=== PATIENT | female | born 1995 | race Asian ===

== ENCOUNTER 2017-05-08 12:48 | Outpatient (CLI) | payer OTHER ==
[~2017-05-08] VITALS: Ht 160 cm; Wt 62.0 kg
[~2017-05-08 12:48] MED LIST: FER325 PO; PNV1TABL4 PO; PREN-46 PO
[2017-05-08 13:56] VITALS: Ht 160 cm; Wt 62.0 kg
[2017-05-08 13:58] VITALS: BP 119/64; PULSE 88; RESP 18
--- NOTE | 2017-05-08 15:00 | RADRPT ---
PROCEDURE: US cervix CLINICAL INDICATION: labor TECHNIQUE: Limited OB ultrasound was performed to evaluate the cervix COMPARISON: No prior studies are available for comparison. FINDINGS: There is a single live intrauterine . Normal cardiac activity is identified at a rat e of 138 beats per minute. The placenta is anterior and posterior grade 1. Cervix is closed and measures 4.4 cm in length. There is no funneling. IMPRESSION: Cervix is closed and measures 4.4 cm in length RPTAT: HH .Russ Bernard MD, Date Time Electronically viewed and signed by .Russ Bernard MD, on 05/08/2017 14:59 .W/
[2017-05-08 15:18] LABS: ADD UMIC YES; UR ASCORBIC ACID 20 mg/dL (NEGATIVE); UR BACTERIA FEW /HPF (NONE SEEN); UR BILIRUBIN (Dip) NEGATIVE (NEGATIVE); UR BLOOD (Dip) NEGATIVE (NEGATIVE); UR CLARITY SLIGHTLY CLOUDY (CLEAR); UR COLOR YELLOW (YELLOW); UR GLUCOSE (Dip) NEGATIVE (NEGATIVE); UR KETONES (Dip) NEGATIVE (NEGATIVE); UR LEUKOCYTE ESTERASE (Dip) 2+ Leu/ul (NEGATIVE); UR MUCUS FEW /HPF (NONE SEEN); UR NITRITE (Dip) NEGATIVE (NEGATIVE); UR RBC 0 /HPF (0-5); UR SPECIFIC GRAVITY (Dip) 1.019 (1.003-1.030); UR SQUAMOUS EPITHELIAL CELL FEW /HPF (FEW); UR TOTAL PROTEIN (Dip) NEGATIVE (NEGATIVE); UR UROBILINOGEN (Dip) NEGATIVE (NEGATIVE)
--- NOTE | 2017-05-08 18:10 | PN ---
Triage Information Date/Time May 08, 2017 Reason for visit: Lower abdominal pain in standing and walk with walking Weeks of Gestation 23 weeks /Para 2 para 1 Diabetes: none Hypertention: none Additional information 21-year-old with IUP at 23 weeks she was sent from her OB clinic today due to feeling lower abdominal pain. Patient reports that her lower abdominal pain is only when she stands and walks and resolves when she is in sitting and lying down position. She denies any leaking of fluid, vaginal bleeding or uterine contractions. She reports that she was seen in the clinic today. Reports had a history of UTI that completed the antibiotics a month ago. Denies any urinary symptoms currently. Objective Vital Signs Date Time Temp Pulse Resp B/P Pulse Ox O2 Delivery O2 Flow Rate FiO2 05/08/17 13:58 98.0 88 18 119/64 Room Air Heart Rate: 130's Contractions: None Exam General appearance: Alert and oriented 4. Patient does not appear to be in any acute distress. Abdomen: Soft, gravid, fundal height consistent with gestational age. No contraction and NST noted There is no suprapubic tenderness, no CVA tenderness, no abdominal tenderness, no guarding, no rigidity no evidence of acute abdomen. Patient appears to be completely comfortable at the time of exam. Transvaginal cervical length: 4.4 cm Results/Medications Results 24 hrs Laboratory Tests Test 05/08/17 13:00 Urine Color YELLOW Urine Clarity SLIGHTLY CLOUDY A Urine pH 7.0 Urine Specific [place] 1.019 Urine Ketones NEGATIVE Urine Nitrite NEGATIVE Urine Bilirubin NEGATIVE Urine Urobilinogen NEGATIVE Urine Leukocyte Esterase 2+ H Urine Microscopic RBC 0 Urine Microscopic WBC 1 Urine Squamous Epithelial Cells FEW Urine Bacteria FEW A Urine Mucus FEW A Urine Hemoglobin NEGATIVE Urine Glucose NEGATIVE Urine Total Protein NEGATIVE Disposition: Discharge Assessment/Plan IUP at 23 weeks lower abdominal pain in both sides Exam consistent with round ligamant pain and musculoskeletal. No evidence of labor Patient was advised to use abdominal binder. labor precaution and kick counts and follow-up within 24-48 hours with her OB clinic recommended. Adequate hydration discussed Patient verbalized understanding. All questions were answered. RANDALL GARZA MD May 08, 2017 18:10
--- NOTE | 2017-05-09 09:49 | TRIAGE ---
OB Triage Datetime Report Generated by CPN: 05/08/2017 16:18 Datetime: 05/08/2017 14:00 Stage of : OB Triage Maternal Assessment Level of Consciousness: Fully Conscious Labor Evaluation Frequency: NONE Monitor Mode: External Resting Tone [place]: Relaxed Heart Rate FHR Baseline Rate: 140 Monitor Mode: External US Accelerations: AGA Decelerations: AGA Category: AGA Pain Assessment Pain Scale: 0 Pain Goal: 3 Vaginal Exam Membrane Status: Intact Vaginal Bleeding: None Datetime: 05/08/2017 13:24 Stage of : OB Triage Assessment Type: Triage Maternal Assessment Level of Consciousness: Fully Conscious DTR's/Clonus: DTRs 2+; No Clonus Headache: Denies Blurred Vision: No Respiratory Effort: Unlabored; Regular Rhythm; Equal Expansion Breath Sounds, Left: Clear and Equal Breath Sounds, Right: Clear and Equal Nausea/Vomiting: Denies RUQ Epigastric Pain: Denies Lower Extremities Edema: None Upper Extremities Edema: None Facial Edema: None Temperature Route: Oral Fall Risk Assessment History of Falling: (0) No Secondary Diagnosis: (0) No Ambulatory Aid: (0) Bedrest/Nurse Assist IV Therapy: (0) No Gait: (0) Normal/Bedrest/Immobile Mental Status: (0) Oriented to Own Ability Fall Score: 0 Fall Risk Score Definition: No Risk: No action required Pain Assessment Pain Scale: 0 Pain Presence: None/Denies Pain Type: N/A Pain Goal: 2 Datetime: 05/08/2017 13:23 EGA: 23.0 Datetime: 05/08/2017 13:07 Time of Arrival: 05/08/2017 13:07 Arrived By: Ambulatory Arrived From: Office Chief Complaint: PT HERE C/O FEELING UC WHILE STANDING Movement: Present Contractions: Irregular Time Contractions Began: 04/09/2017 12:00 Rupture of Membranes: Denies Vaginal Bleeding: None Vaginal Discharge: Denies Recent Sexual Intercouse: Denies Abdominal Trauma: Not Applicable Patient Complaints: Contractions Time Provider Notified: 05/08/2017 14:03 Provider Notified: GREG Initial Plan: NST/UA/CVL/PO HYDRATION
== END 2017-05-08 16:15 | disposition home or self-care (01) ==
LOC: OBT 12:48 → L-D 12:58 → OBT 16:15
PROVIDERS: ATTEND Obstetrics & Gynecology
DX: O26.892 Other specified pregnancy related conditions, second trimester (principal); Z3A.23 23 weeks gestation of pregnancy; M54.5 Low back pain
CPT/HCPCS: 76817; 81001; Z7500; G0463

== ENCOUNTER 2017-07-18 11:56 | Outpatient (CLI) | payer OTHER ==
[~2017-07-18] VITALS: Ht 162.6 cm; Wt 70.6 kg
[~2017-07-18 11:56] MED LIST changes: -PNV1TABL4 PO
[2017-07-18 12:14] VITALS: Ht 162.6 cm; Wt 70.6 kg
[2017-07-18 12:15] VITALS: BP 108/68; PULSE 92; RESP 18
--- NOTE | 2017-07-18 15:01 | RADRPT ---
PROCEDURE: US OB biophysical profile. CLINICAL INDICATION: evaluation TECHNIQUE: Multiple sonographic images of the pelvis were obtained. The images were reviewed on a PACS workstation. COMPARISON: No prior studies are available for comparison. FINDINGS: The cervix is closed and measures 3.3 cm in length. There is a single viable intrauterine gestation. Cardiac activity is present with 148 beats per min sofy. There is a vertex presentation. The placenta is anterior. There is no evidence of placental abruption. There is a normal amount of amniotic fluid with an RYAN = 13.0 cm. Biophysical profile: movement 2/2 tone 2/2. breathing 2/2 RYAN 2/2 Total 04/30 RPTAT: AA . IMPRESSION: Normal biophysical profile. Normal RYAN. The cervix is closed and measures 3.3 cm in length. Physician Tam Date Time Electronically viewed and signed by Physician Tam on 07/18/2017 15:01 /
--- NOTE | 2017-07-18 16:19 | TRIAGE ---
OB Triage Datetime Report Generated by CPN: 07/18/2017 16:19 Datetime: 07/18/2017 15:00 Stage of : OB Triage Maternal Assessment Level of Consciousness: Fully Conscious Labor Evaluation Frequency: NONE Monitor Mode: External Resting Tone [place]: Relaxed Heart Rate FHR Baseline Rate: 145 Monitor Mode: External US Variability: Moderate 6-25 bpm Accelerations: 15X15 Decelerations: None Pain Assessment Pain Scale: 0 Pain Goal: 3 Membrane Status: Intact Vaginal Bleeding: None Datetime: 07/18/2017 14:00 Stage of : OB Triage Maternal Assessment Level of Consciousness: Fully Conscious Labor Evaluation Frequency: 2UC/HR Monitor Mode: External Duration (sec)2399: 110-120 Quality: Mild Resting Tone [place]: Relaxed Heart Rate FHR Baseline Rate: 145 Monitor Mode: External US Variability: Moderate 6-25 bpm Accelerations: 15X15 Decelerations: None Pain Assessment Pain Scale: 0 Pain Goal: 3 Membrane Status: Intact Vaginal Bleeding: None Datetime: 07/18/2017 13:32 Vaginal Exam Dilatation (cms): 0.0 Exam By: Dr Foroohar Vaginal Bleeding: None Cervix, Consistency: Moderate Cervix, Position: Posterior Presentation 'A': Cephalic Datetime: 07/18/2017 13:00 Stage of : OB Triage Maternal Assessment Level of Consciousness: Fully Conscious Labor Evaluation Frequency: NONE Monitor Mode: External Resting Tone [place]: Relaxed Heart Rate FHR Baseline Rate: 145 Monitor Mode: External US Variability: Moderate 6-25 bpm Accelerations: 15X15 Decelerations: None Category: Category I Pain Assessment Pain Scale: 0 Pain Goal: 3 Membrane Status: Intact Vaginal Bleeding: None Datetime: 07/18/2017 12:11 Assessment Type: Triage Maternal Assessment Level of Consciousness: Fully Conscious DTR's/Clonus: DTRs 2+; No Clonus Headache: Denies Blurred Vision: No Respiratory Effort: Unlabored; Regular Rhythm; Equal Expansion Breath Sounds, Left: Clear and Equal Breath Sounds, Right: Clear and Equal Nausea/Vomiting: Denies RUQ Epigastric Pain: Denies Lower Extremities Edema: None Degree: None Upper Extremities Edema: None Degree: None Facial Edema: None Fall Risk Assessment History of Falling: (0) No Secondary Diagnosis: (0) No Ambulatory Aid: (0) Bedrest/Nurse Assist IV Therapy: (0) No Gait: (0) Normal/Bedrest/Immobile Mental Status: (0) Oriented to Own Ability Fall Score: 0 Fall Risk Score Definition: No Risk: No action required Datetime: 07/18/2017 12:10 Time of Arrival: 07/18/2017 11:45 EGA: 33.1 Arrived By: Ambulatory Arrived From: Home Chief Complaint: PT SENT FROM CLINIC C/O CRAMPING AND VAGINAL DISCHARGE Movement: Present Contractions: Denies/Absent Rupture of Membranes: Unsure Vaginal Bleeding: None Vaginal Discharge: Present Recent Sexual Intercouse: Denies Abdominal Trauma: Not Applicable Patient Complaints: Cramping Time Provider Notified: 07/18/2017 13:00 Provider Notified: [facility] Initial Plan: BPP/CVL/SVE Datetime: 07/18/2017 12:07 Monitor Mode: External Monitor Mode: External US Datetime: 05/08/2017 15:57 Stage of : OB Triage Maternal Assessment Level of Consciousness: Fully Conscious Labor Evaluation Frequency: NONE Monitor Mode: External Resting Tone [place]: Relaxed Heart Rate FHR Baseline Rate: 140 Monitor Mode: External US Accelerations: AGA Decelerations: AGA Pain Assessment Pain Scale: 0 Pain Goal: 3 Membrane Status: Intact Vaginal Bleeding: None Datetime: 05/08/2017 15:00 Stage of : OB Triage Maternal Assessment Level of Consciousness: Fully Conscious Labor Evaluation Frequency: NONE Monitor Mode: External Resting Tone [place]: Relaxed Heart Rate FHR Baseline Rate: 140 Monitor Mode: External US Accelerations: AGA Decelerations: AGA Pain Assessment Pain Scale: 0 Pain Goal: 3 Membrane Status: Intact Vaginal Bleeding: None Datetime: 05/08/2017 13:24 Fall Score: 0 Fall Risk Score Definition: No Risk: No action required Datetime: 05/08/2017 13:23 EGA: 23.0
--- NOTE | 2017-07-18 16:39 | CONS ---
Date/Time of Note Date/Time of Note DATE: 07/18/17 TIME: 16:30 Consultation Date/Type/Reason Admit Date/Time Hx of Present Illness .July 18, 2017 OB triage consult. This patient is 22 years old 2 para 1 living 1 with previous section her estimated date of confinement is 09/09/2017 which makes it about 33 weeks and 1 day today. She came to triage complaining of a premature contractions In reviewing her record her lab works were fairly normal blood type O Rh+ hepatitis B surface antigen nonreactive rubella immune Chlamydia and gonorrhea were negative. On examination she is a well-developed well-nourished patient . Due to her claim of uterine contraction I did a pelvic examination and the cervix was closed thick and about 40% effaced . No evidence of rupture of membranes Constitutional: chills, diaphoresis, disoriented, febrile, improved, no complaints, other, poor po, requiring IVF, requiring O2 Eyes: discharge, no complaints, other, pain, redness, visual change ENT: bleeding, congestion, discharge, dysphagia, no complaints, other, pain, sore throat Respiratory: cough, no complaints, other, pain, pleuritic pain, shortness of breath, sputum, wheezing Cardiovascular: chest pain, edema, lightheadedness, no complaints, orthopenea, other, palpitations, paroxysmal nocturnal dyspnea Gastrointestinal: blood, constipation, decreased appetite, diarrhea, flatus, nausea, no complaints, other, pain, passing stool, vomiting Genitourinary: bleeding, discharge, dysuria, flank pain, hematuria, no complaints, other Musculoskeletal: No back pain, No bone/joint pain, No neck pain, No no complaints, No other, No restricted range of motion, No swelling Skin: No bruising, No erythema, No laceration, No no complaints, No other, No pruritis, No rash, No skin lesions Neurologic: No confusion, No dizziness, No focal-weakness, No headache, No no complaints, No other, No seizure, No syncope Additional Comments On ultrasound study report is a single viable intrauterine gestation with cardiac activity 148/min cervical length was 3.3 cm baby was in vertex presentation placenta was anterior no evidence of previa amniotic fluid index was 13.0 cm biophysical profile was 8/8 With these finding reassurance given to the patient and she was discharged home to rest at home and to do kick count and return to the clinic in case of evidence of labor, rupture of membrane or bleeding ,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 End of dictation.. Social History Smoking Status: Never smoker Exam/Review of Systems Vital Signs Vitals Vital Signs Date Time Temp Pulse Resp B/P Pulse Ox O2 Delivery O2 Flow Rate FiO2 07/18/17 12:15 98.5 92 18 108/68 97 Room Air MISAEL SUAZO MD Jul 18, 2017 16:39
== END 2017-07-18 16:16 | disposition home or self-care (01) ==
LOC: L-D 11:56 → OBT 11:56
PROVIDERS: ATTEND Obstetrics & Gynecology
DX: O62.9 Abnormality of forces of labor, unspecified (principal); Z3A.33 33 weeks gestation of pregnancy
CPT/HCPCS: 76817; 76818; Z7500; G0463

== ENCOUNTER 2017-09-01 18:58 | Inpatient (IN) | payer OTHER ==
[~2017-09-01] VITALS: Ht 162.6 cm; Wt 72.8 kg
[~2017-09-01 18:58] MED LIST changes: -FER325 PO
[2017-09-01 19:36] VITALS: Ht 162.6 cm; Wt 72.8 kg
[2017-09-01 19:37] VITALS: BP 118/76; PULSE 92; RESP 18
[2017-09-01] MEDS ORDERED: IBUPROFEN 600 MG TAB PO PRN (20:30)
[2017-09-01] MEDS ORDERED: OXYTOCIN 30 UNITS/LR 500 ML IV PRN (20:30)
[2017-09-01] MEDS ORDERED: VANCOMYCIN 1 GM (PMX) 250 ML IV SCH (20:30)
[2017-09-01] MEDS ORDERED: OXYTOCIN 30 UNITS/LR 500 ML IV SCH ×3 (20:30→23:52)
[2017-09-01] MEDS ORDERED: METHYLERGONOVINE 0.2 MG INJ IM PRN (20:30)
[2017-09-01] MEDS ORDERED: LIDOCAINE 1% (MPF) 30 ML INJ INJ PRN (20:30)
[2017-09-01] MEDS ORDERED: HYDROCODONE/APAP (5/325) TAB PO PRN (20:30)
[2017-09-01] MEDS ORDERED: MISOPROSTOL 200 MCG TAB PR PRN (20:30)
[2017-09-01] MEDS ORDERED: CARBOPROST 250 MCG INJ IM PRN (20:30)
[2017-09-01] MEDS ORDERED: BUTORPHANOL 2 MG INJ IV PRN ×2 (20:30)
[2017-09-01] MEDS: LACTATED RINGER'S 1,000 ML IV SCH (20:37)
[2017-09-01 20:42] LABS: BASOPHIL # 0.1 10^3/ul (0.0-0.1); BASOPHILS % 0.4 % (0.0-2.0); EOSINOPHILS # 0.1 10^3/ul (0.0-0.5); EOSINOPHILS % 0.6 % (0.0-7.0); HEMATOCRIT 37.3 % (37.0-47.0); HEMOGLOBIN 12.8 g/dl (12.0-16.0); LYMPHOCYTES # 1.9 10^3/ul (0.8-2.9); LYMPHOCYTES % 15.7 % (15.0-51.0); MEAN CORPUSCULAR HEMOGLOBIN 30.2 pg (29.0-33.0); MEAN CORPUSCULAR HGB CONC 34.3 g/dl (32.0-37.0); MEAN PLATELET VOLUME 10.1 fl (7.4-10.4); MONOCYTE # 1.1 10^3/ul (0.3-0.9); MONOCYTES % 9.5 % (0.0-11.0); NEUTROPHIL # 8.6 10^3/ul (1.6-7.5); NEUTROPHILS % 72.7 % (39.0-77.0); PLATELET COUNT 252 10^3/UL (140-415); RED BLOOD COUNT 4.24 10^6/ul (4.20-5.40); RED CELL DISTRIBUTION WIDTH 12.5 % (11.5-14.5); WHITE BLOOD COUNT 11.8 10^3/ul (4.8-10.8)
[2017-09-01 21:06] LABS: INR 0.93; PARTIAL THROMBOPLASTIN TIME 27.9 Sec (25.0-35.0); PROTIME 12.5 Sec (11.9-14.9)
--- NOTE | 2017-09-01 21:39 | HP ---
Date/Time of Note Date/Time of Note DATE: 09/01/17 TIME: 21:36 OB - History Hx of Present Chief Complaint: contractions : 2 Para: 1 Care: Good Care Obstetrical Complications: None Medical Complications: None Past Family/Social History * Past Medical, Surgical, Family and Obstetric Histories reviewed from chart. GBS Status: Positive OB Admission Exam Vital Signs Vital Signs Vital Signs Date Time Temp Pulse Resp B/P Pulse Ox O2 Delivery O2 Flow Rate FiO2 09/01/17 19:37 98.1 92 18 118/76 96 Room Air Physical Exam HEENT: WNL Heart: Rhythm Normal Lungs: Clear Abdomen: WNL Extremities: Normal Cervical Dilatation: 5cm Effacement: 75% Station: -2 Membranes: Intact Accelerations: Accelerations Present Decelerations: No Decelerations Varibility: Moderate Contractions on Admission: < 5 Minutes Apart Last 72 hours Lab Results CBC & BMP 09/01/17 20:30 OB Assessment/Plan Reason for admission: active labor, group B positive strep Plan: Expectant Management Other plan: Vancomycin for GBS prophylaxis ANETA AMADOR Sep 01, 2017 21:39
--- NOTE | 2017-09-01 22:25 | TRIAGE ---
OB Triage Datetime Report Generated by CPN: 09/01/2017 22:24 Datetime: 09/01/2017 22:03 Vaginal Exam Dilatation (cms): 9.0 Effacement (%): 100 Station: -1 Membrane Status: Bulging Datetime: 09/01/2017 22:00 Stage of : Labor Labor Evaluation Frequency: 2-3 Monitor Mode: External Duration (sec)2399: 50-80 Quality: Strong Pattern: Normal: <= 5 Contractions in 10 Minutes Resting Tone [place]: Relaxed Heart Rate FHR Baseline Rate: 145 Monitor Mode: External US Variability: Moderate 6-25 bpm Accelerations: None Decelerations: None Pain Assessment Pain Scale: 8 Pain Presence: Intermittent Pain Type: Contraction Pain Location: Abdomen Pain Goal: 3 Pain Relief Measures: Comfort Measures Datetime: 09/01/2017 21:57 Vaginal Exam Dilatation (cms): 9.0 Effacement (%): 100 Station: -2 Membrane Status: Bulging Datetime: 09/01/2017 21:30 Stage of : Labor Labor Evaluation Frequency: 2-4 Monitor Mode: External Duration (sec)2399: 60-120 Quality: Strong Pattern: Normal: <= 5 Contractions in 10 Minutes Resting Tone [place]: Relaxed Heart Rate FHR Baseline Rate: 145 Monitor Mode: External US Variability: Moderate 6-25 bpm Accelerations: 15X15 Decelerations: None Pain Assessment Pain Scale: 6 Pain Presence: Intermittent Pain Type: Contraction Pain Location: Abdomen Pain Goal: 3 Pain Relief Measures: Pain Medication Given Datetime: 09/01/2017 20:53 Stage of : Labor Assessment Type: Admission Assessment Vaginal Bleeding: None Maternal Assessment Level of Consciousness: Fully Conscious DTR's/Clonus: DTRs 2+; No Clonus Headache: Denies Blurred Vision: No Respiratory Effort: Unlabored; Regular Rhythm; Equal Expansion Breath Sounds, Left: Clear and Equal Breath Sounds, Right: Clear and Equal Nausea/Vomiting: Denies RUQ Epigastric Pain: Denies Lower Extremities Edema: None Degree: None Upper Extremities Edema: None Degree: None Facial Edema: None Fall Risk Assessment History of Falling: (0) No Secondary Diagnosis: (0) No Ambulatory Aid: (0) Bedrest/Nurse Assist IV Therapy: (20) Yes Gait: (0) Normal/Bedrest/Immobile Mental Status: (0) Oriented to Own Ability Fall Score: 20 Fall Risk Score Definition: No Risk: No action required Labor Evaluation Frequency: 3-4 Duration (sec)2399: 60-80 Quality: Strong Pattern: Normal: <= 5 Contractions in 10 Minutes Resting Tone [place]: Relaxed Heart Rate FHR Baseline Rate: 145 Variability: Moderate 6-25 bpm Accelerations: 15X15 Decelerations: None Pain Assessment Pain Scale: 8 Pain Presence: Intermittent Pain Type: Contraction Pain Location: Abdomen Pain Goal: 3 Membrane Status: Intact Datetime: 09/01/2017 20:42 Pain Assessment Comments: PT REQUESTING PAIN MEDICATION AT THIS TIME Vaginal Exam Dilatation (cms): 7.0 Effacement (%): 90 Station: -2 Membrane Status: Intact Vaginal Bleeding: None Cervix, Consistency: Soft Cervix, Position: Midposition Datetime: 09/01/2017 20:36 Stage of : Labor Datetime: 09/01/2017 20:30 Stage of : Labor Datetime: 09/01/2017 20:12 Stage of : Labor Labor Evaluation Frequency: 2.5-10 Monitor Mode: External Duration (sec)2399: 40-110 Quality: Mild Resting Tone [place]: Relaxed Heart Rate FHR Baseline Rate: 140 Monitor Mode: External US Variability: Moderate 6-25 bpm Accelerations: 15X15 Decelerations: None Category: Category I Datetime: 09/01/2017 19:50 Stage of : OB Triage Datetime: 09/01/2017 19:48 Stage of : OB Triage Datetime: 09/01/2017 19:43 Vaginal Exam Dilatation (cms): 4.5 Effacement (%): 80 Station: -2 Exam By: Leah RAMIREZ Vaginal Bleeding: None Cervix, Consistency: Moderate Cervix, Position: Posterior Presentation 'A': Cephalic Datetime: 09/01/2017 19:32 Assessment Type: Triage Datetime: 09/01/2017 19:29 Time of Arrival: 09/01/2017 19:00 EGA: 38.6 Arrived By: Wheelchair Arrived From: Home Chief Complaint: ucs since this am Movement: Present Contractions: Irregular Time Contractions Began: 09/01/2017 09:00 Contractions: q 10 Rupture of Membranes: Denies Vaginal Bleeding: None Vaginal Discharge: Denies Recent Sexual Intercouse: Denies Abdominal Trauma: Not Applicable Patient Complaints: Contractions Initial Plan: VS, EFM, SVE, CALL MD Datetime: 09/01/2017 19:22 Assessment Type: Triage Maternal Assessment Level of Consciousness: Fully Conscious DTR's/Clonus: DTRs 2+; No Clonus Headache: Denies Blurred Vision: No Respiratory Effort: Unlabored Breath Sounds, Left: Clear and Equal Breath Sounds, Right: Clear and Equal Nausea/Vomiting: Denies RUQ Epigastric Pain: Denies Lower Extremities Edema: None Degree: None Upper Extremities Edema: None Degree: None Facial Edema: None Fall Risk Assessment History of Falling: (0) No Secondary Diagnosis: (15) Yes (Annotations: LOW PAPPA) Ambulatory Aid: (0) Bedrest/Nurse Assist IV Therapy: (0) No Gait: (0) Normal/Bedrest/Immobile Mental Status: (0) Oriented to Own Ability Fall Score: 15 Fall Risk Score Definition: No Risk: No action required Datetime: 07/18/2017 12:11 Fall Score: 0 Fall Risk Score Definition: No Risk: No action required Datetime: 07/18/2017 12:10 EGA: 32.3 Datetime: 05/08/2017 13:24 Fall Score: 0 Fall Risk Score Definition: No Risk: No action required Datetime: 05/08/2017 13:23 EGA: 22.2
[2017-09-01] MEDS ORDERED: LACTATED RINGER'S 1,000 ML IV* SCH (23:52)
--- NOTE | 2017-09-01 23:52 | LDN ---
Date/Time of Note Date/Time of Note DATE: 09/01/17 TIME: 23:50 Delivery Summary Placenta Delivered: Spontaneously Meconium: none Episiotomy: No Perineal laceration: 1 Laceration repair: 1st degree perineal laceration and right labial laberation repaired with 4-0 chromic Anesthesia type: Local Estimated blood loss: 250 Sponge & Needle done & correct: Yes All needle counts correct: Yes Any foreign bodies felt in the: No Problems: Infant Delivery Information Sex Infant Sex: male Apgars 1 Minute: 9 5 Minute: 9 Suctioning Nose & mouth suctioned at noa: Yes Umbilical Cord Umbilical cord with: 3 Vessels Cord presentations: no nuchal cord Cord Blood was obtained: Yes Mother & Baby Disposition Disposition Mom & Baby to Maternity; Good: Yes ANETA AMADOR Sep 01, 2017 23:51
[2017-09-02] MEDS ORDERED: METHYLERGONOVINE 0.2 MG INJ IM PRN
[2017-09-02] MEDS ORDERED: DIBUCAINE 1% 30 GM OINT PR PRN
[2017-09-02] MEDS ORDERED: BENZOCAINE 20% 56 ML SPRAY TOP PRN
[2017-09-02] MEDS ORDERED: HYDROCODONE/APAP (5/325) TAB PO PRN ×2
[2017-09-02] MEDS ORDERED: MISOPROSTOL 200 MCG TAB PR PRN
[2017-09-02] MEDS ORDERED: LANOLIN 7 GM TUBE TOP PRN
[2017-09-02] MEDS ORDERED: CARBOPROST 250 MCG INJ IM PRN
[2017-09-02] MEDS ORDERED: OXYTOCIN 30 UNITS/LR 500 ML IV PRN
[2017-09-02] MEDS ORDERED: WITCH HAZEL/GLYCERIN PAD PR PRN
--- NOTE | 2017-09-02 00:10 | DELSUM ---
Delivery Summary A-C Datetime Report Generated by CPN: 09/02/2017 00:09 DELIVERY PERSONNEL Leadership Development Consultant: Whaeln, Josette MATERNAL INFORMATION Delivery Anesthesia: None Medications in Delivery: 30 UNIT PITOCIN Estimated Blood Loss (ml): 250 Placenta Cultured: No Maternal Complications: None LABOR SUMMARY EDC: 09/09/2017 00:00 EDC: 09/04/2017 00:00 No. Babies in Womb: 1 Attempted: No Labor Anesthesia: IV Sedation LABOR INFORMATION Reason for Induction: Not Applicable Onset of Labor: 09/01/2017 16:00 Complete Dilatation: 09/01/2017 23:19 Oxytocin: N/A Group B Beta Strep: Positive Antibiotics # of Doses: 1 Antibiotics Time of Last Dose: 09/01/2017 20:49 Steroids Given: None Reason Steroids Not Administered: Not Applicable Other Reason Not Administered: TERM MEMBRANES Membranes Rupture Method: Artificial Rupture of Membranes: 09/01/2017 23:26 Length of Rupture (hr): 0.03 Amniotic Fluid Color: Clear Amniotic Fluid Amount: Moderate Amniotic Fluid Odor: None STAGES OF LABOR Stage 1 hr: 7 Stage 1 min: 19 Stage 2 hr: 0 Stage 2 min: 9 Stage 3 hr: 0 Stage 3 min: 3 Total Time in Labor hr: 7 Total Time in Labor min: 31 VAGINAL DELIVERY Episiotomy: None Laceration Extension: First Degree Laceration Type: Perineal Other Laceration: LEFT LABIAL Laceration Repair: Yes Initial Vag Sponge Count: 10 Final Vag Sponge Count: 10 Initial Vag Sharps Count: 1 Final Vag Sharps Count: 2 Sponge Count Correct: Yes; Vaginal Sweep Performed Sharps Count Correct: Yes Count Comment: 1 sharp added to field BABY A INFORMATION Infant Delivery Date/Time: 09/01/2017 23:28 Method of Delivery: Vaginal Born in Route : No : N/A Forceps: N/A Vacuum Extraction: Successful Shoulder Dystocia : N/A SHOULDER DYSTOCIA BABY A Infant Delivery Date/Time: 09/01/2017 23:28 PRESENTATION/POSITION BABY A Presentation: Cephalic Presentation: Cephalic Cephalic Presentation: Vertex Vertex Position: Left Occipital Anterior Breech Presentation: N/A PLACENTA INFORMATION BABY A Placenta Delivery Time : 09/01/2017 23:31 Placenta Method of Delivery: Spontaneous Placenta Status: Delivered SCORES BABY A Heart Rate 1 min: >100 bpm Resp Effort 1 min: Good Cry Reflex Irritability 1 min: Cough/Sneeze/Pulls Away Muscle Tone 1 min: Active Motion Color 1 min: Body [place], Extremit Blue Resuscitation Effort 1 min: Tactile Stimulation SCORE 1 MIN: 9 Heart Rate 5 min: >100 bpm Resp Effort 5 min: Good Cry Reflex Irritability 5 min: Cough/Sneeze/Pulls Away Muscle Tone 5 min: Active Motion Color 5 min: Body [place], Extremit Blue Resuscitation Effort 5 min: Tactile Stimulation SCORE 5 MIN: 9 INFANT INFORMATION BABY A Gestational Age at Delivery: 38.6 Gestational Status: Early Term- 37- 38.6 Weeks Infant Outcome : Liveborn Infant Condition : Stable Sex: Male IDENTIFICATION/MEDS BABY A ID Band Number: [id number] ID Band Location: Right Leg; Left Arm Sensor Applied: Yes Sensor Number: [id number] Sensor Location : Cord Clamp Vitamin K Given : Not Given Erythromycin Given: Not Given WEIGHT/LENGTH BABY A Birthweight (gm): 3385 Infant Weight (lb): 7 Infant Weight (oz): 7 Length (in): 20.00 Length (cm): 50.80 CORD INFORMATION BABY A No. Cord Vessels: 3 Nuchal Cord : N/A Cord Blood Taken: Yes Suction: Mouth; Nose ASSESSMENT BABY A Complications: None Physical Findings at Delivery: Within Normal Limits Respirations: Appears Normal Lpn Home Health/ALS Called : No Care By: Haile HARTMAN Transferred To: Remains with Mother
[2017-09-02] MEDS: IBUPROFEN 600 MG TAB PO SCH ×5 (01:54→23:21)
[2017-09-02 02:15] VITALS: BP 113/59; PULSE 77; RESP 18
[2017-09-02 03:45] VITALS: BP 108/60; PULSE 83; RESP 18
[2017-09-02] MEDS: LACTATED RINGER'S 1,000 ML IV SCH (04:03)
[2017-09-02 07:50] VITALS: BP 110/59; PULSE 88; RESP 18
[2017-09-02 08:42] LABS: ABNORMAL IP MESSAGE 1; BASOPHILS % 0.1 % (0.0-2.0); HEMATOCRIT 34.2 % (37.0-47.0); HEMOGLOBIN 11.4 g/dl (12.0-16.0); LYMPHOCYTES # 1.9 10^3/ul (0.8-2.9); LYMPHOCYTES % 9.4 % (15.0-51.0); MEAN CORPUSCULAR HEMOGLOBIN 29.8 pg (29.0-33.0); MEAN CORPUSCULAR HGB CONC 33.3 g/dl (32.0-37.0); MEAN CORPUSCULAR VOLUME 89.5 fl (82.0-101.0); MEAN PLATELET VOLUME 10.8 fl (7.4-10.4); MONOCYTE # 1.7 10^3/ul (0.3-0.9); NEUTROPHIL # 16.8 10^3/ul (1.6-7.5); NEUTROPHILS % 81.9 % (39.0-77.0); PLATELET COUNT 231 10^3/UL (140-415); RED BLOOD COUNT 3.82 10^6/ul (4.20-5.40); RED CELL DISTRIBUTION WIDTH 12.5 % (11.5-14.5); WHITE BLOOD COUNT 20.6 10^3/ul (4.8-10.8)
[2017-09-02 08:45] LABS: POSITIVE DIFF @See below
[2017-09-02 12:30] VITALS: BP 114/80; PULSE 85; RESP 20
[2017-09-02 16:10] VITALS: BP 110/70; PULSE 83; RESP 19
[2017-09-02 20:00] VITALS: BP 104/64; PULSE 93; RESP 20
--- NOTE | 2017-09-02 22:09 | QN ---
Documentation Comment No complaint Afebrile VSS Fundus firm Lochia scant PPD #1 Stable continue present care. CLIFF UREÑA MD Sep 02, 2017 22:09
[2017-09-02] MEDS ORDERED: MAGNESIUM HYDROXIDE 30ML CUP PO ONE (22:30)
[2017-09-03 04:36] VITALS: BP 110/64; PULSE 70; RESP 20
[2017-09-03] MEDS: IBUPROFEN 600 MG TAB PO SCH ×3 (05:26→17:12)
[2017-09-03 08:24] VITALS: BP 91/80; PULSE 76; RESP 18
[2017-09-03] MEDS ORDERED: MEASLES,MUMPS,RUBELLA VACCINE INJ SC* ONE (09:00)
[2017-09-03] MEDS ORDERED: INFLUENZA VIRUS VACCINE 0.5 ML (DISPENSING) IM* ONE (09:00)
[2017-09-03] MEDS ORDERED: DIPHTH/TET/ACEL PERTUSS (ADULT) 0.5 ML VIAL IM* ONE (09:00)
[2017-09-03] MEDS ORDERED: VARICELLA VACCINE LIVE/PF 1,350 UNIT/0.5 ML ML SC* ONE (09:00)
[2017-09-03 10:48] LABS: BASOPHIL # 0.1 10^3/ul (0.0-0.1); BASOPHILS % 0.5 % (0.0-2.0); EOSINOPHILS # 0.2 10^3/ul (0.0-0.5); EOSINOPHILS % 1.9 % (0.0-7.0); HEMATOCRIT 33.8 % (37.0-47.0); HEMOGLOBIN 11.2 g/dl (12.0-16.0); LYMPHOCYTES # 2.9 10^3/ul (0.8-2.9); LYMPHOCYTES % 25.7 % (15.0-51.0); MEAN CORPUSCULAR HEMOGLOBIN 30.4 pg (29.0-33.0); MEAN CORPUSCULAR HGB CONC 33.1 g/dl (32.0-37.0); MEAN CORPUSCULAR VOLUME 91.6 fl (82.0-101.0); MEAN PLATELET VOLUME 10.6 fl (7.4-10.4); MONOCYTE # 0.9 10^3/ul (0.3-0.9); MONOCYTES % 7.8 % (0.0-11.0); NEUTROPHIL # 7.1 10^3/ul (1.6-7.5); NEUTROPHILS % 62.8 % (39.0-77.0); PLATELET COUNT 232 10^3/UL (140-415); RED BLOOD COUNT 3.69 10^6/ul (4.20-5.40); RED CELL DISTRIBUTION WIDTH 12.7 % (11.5-14.5); WHITE BLOOD COUNT 11.3 10^3/ul (4.8-10.8)
--- NOTE | 2017-09-03 12:30 | DS ---
Date/Time of Note Date/Time of Note DATE: 09/03/17 TIME: 12:29 Obstetrical Discharge Record Final Diagnosis Final Diagnosis: Term delivered Vaginal Delivery Obstetrical Delivery: Spontaneous Condition on Discharge Physical Assessment Voiding: Yes Bowel Movement: Yes Breast: Soft, non-tender, Filling Fundus: Firm Calf Tenderness: No Patient Condition: Stable CLIFF UREÑA MD Sep 03, 2017 12:30
[2017-09-03 16:00] VITALS: BP 99/60; PULSE 76; RESP 18
== END 2017-09-03 18:40 | disposition home or self-care (01) | DRG 775 ==
LOC: OBT 18:58 → L-D 18:58 → OBT 19:55 → PP1 09-02 02:00
PROVIDERS: ADMIT Obstetrics & Gynecology; ATTEND Obstetrics & Gynecology
PROC: 10E0XZZ Delivery of Products of Conception, External Approach (ICD-10-PCS; principal; 2017-09-01)
PROC: 0HQ9XZZ Repair Perineum Skin, External Approach (ICD-10-PCS; 2017-09-01)
DX: O70.0 First degree perineal laceration during delivery (principal); O99.824 Streptococcus B carrier state complicating childbirth; Z3A.38 38 weeks gestation of pregnancy; Z37.0 Single live birth
CPT/HCPCS: 85025; 85610; 85730; 86592; 86900; 86901; 87340; 90686; 90715; 90716; G0463; J0595; J2590; J3370; J7120